=== PATIENT | male | born 1985 | race African-American/Black ===

== ENCOUNTER 2019-08-03 02:24 | Emergency (ER) | payer SELFPAY ==
[~2019-08-03] VITALS: Ht 182.9 cm; Wt 86.2 kg
[2019-08-03] MEDS ORDERED: TETRACAINE 0.5% OPHTH SOLUTION 4ML BOTTLE. ONE (02:30)
[2019-08-03] MEDS ORDERED: FLUORESCEIN OPHTH TEST STRIP. ONE (02:42)
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
[2019-08-03] MEDS ORDERED: FLUORESCEIN OPHTH TEST STRIP. OS ONE (03:00)
--- NOTE | 2019-08-03 03:08 | RAD ---
PQRS Compliance statement: One or more of the following individualized dose reduction techniques were utilized for this examination: 1. Automated exposure control. 2. Adjustment of the mA and/or kV according to patient size. 3. Use of iterative reconstruction technique. INDICATION: Injury to the left eye TECHNIQUE: CT of the orbits without IV contrast with multiplanar reformats COMPARISON: None FINDINGS: No acute orbital fractures. The lenses, globes, extraocular muscles and intraorbital fat are within normal limits. Trace amount of emphysema is seen along the medial wall of the left orbit. Small mucous retention cyst is seen in the frontal sinus. Mucoperiosteal thickening is seen of the right maxillary sinus. Rest of the paranasal sinuses and mastoid air cells are clear. Bilateral zygoma and zygomatic arches are within normal limits. Bilateral temporomandibular joints are within normal limits. Visualized upper cervical spine is within normal limits. IMPRESSION: No acute orbital fracture. No preseptal or post septal large hematoma. Frontal and right maxillary sinus disease. Electronically signed by: Humberto Jacob DO (08/03/2019 3:05 AM) [facility]
[2019-08-03] MEDS ORDERED: TETRACAINE 0.5% OPHTH SOLUTION 4ML BOTTLE. OS ONE (03:30)
[2019-08-03 03:36] VITALS: BP 158/116
== END 2019-08-03 03:40 | disposition home or self-care (01) ==
LOC: ER 02:24
DX: S01.112A Laceration without foreign body of left eyelid and periocular area, initial encounter (principal); Y28.9XXA Contact with unspecified sharp object, undetermined intent, initial encounter; Y93.89 Activity, other specified; Y92.038 Other place in apartment as the place of occurrence of the external cause; Y99.8 Other external cause status
CPT/HCPCS: 70480; 99285-25